=== PATIENT | male | born 1960 | race Caucasian/White ===

== ENCOUNTER 2020-04-08 20:23 | Emergency (ER) | payer MEDICAID ==
[~2020-04-08] VITALS: Ht 170.2 cm; Wt 100.0 kg
[2020-04-08] MEDS ORDERED: ONDANSETRON 4MG ODT PO STA (20:52)
[2020-04-08] MEDS ORDERED: SODIUM CHLORIDE 0.9% 1,000 ML IV ONE (21:45)
[2020-04-08] MEDS ORDERED: LEVOFLOXACIN 500MG PREMIX 100 ML IV ONE (22:00)
[2020-04-08 22:21] LABS: BASOPHILS % 0.1 % (0.0-2.0); EOSINOPHILS % 1.7 % (0.0-5.0); HEMOGLOBIN. 15.5 g/dL (14.0-18.0); LYMPHOCYTES % 14.3 % (20.0-50.0); MONOCYTES % 4.5 % (2.0-8.0); NEUTROPHILS % 79.4 % (40.0-76.0); RED CELL DISTRIBUTION WIDTH 12.8 % (11.6-14.6)
[2020-04-08 22:28] LABS: CHLORIDE 103 mEq/L (98-107)
[2020-04-08 22:30] LABS: PROTHROMBIN TIME 10.9 sec (9.6-11.0)
[2020-04-08 22:39] LABS: MEAN PLATELET VOLUME 9.9 fl (7.4-10.4); PLATELET 166 x1000/uL (130-400)
[2020-04-09] MEDS ORDERED: ONDANSETRON 4MG ODT PO ONE (00:45)
[2020-04-09 01:19] VITALS: BP 150/76
== END 2020-04-09 02:07 | disposition home or self-care (01) ==
LOC: ER 20:23 → CANBEDREQ 04-09 02:09
DX: U07.1 COVID-19 (principal); I10 Essential (primary) hypertension; I25.10 Atherosclerotic heart disease of native coronary artery without angina pectoris; I25.2 Old myocardial infarction
CPT/HCPCS: 36415; 71045; 80053; 83690; 84484; 85025; 85610; 87635; 93005; 96374; 99285; J1956; J7030; Q0162